=== PATIENT | female | born 1940 | race Caucasian/White ===

== ENCOUNTER 2018-09-26 21:23 | Inpatient (IN) | payer OTHER ==
--- NOTE | 2018-09-26 21:40 | EDPHY ---
H & P Stated Complaint: abd pain and nausea since 3 p.m. severe RLQ pain - Personal History Current Tetanus/Diphtheria Vaccine: No Current Tetanus Diphtheria and Acellular Pertussis (TDAP): No - Medical/Surgical History Hx Asthma: No Hx Chronic Respiratory Disease: No Hx Diabetes: No Hx Cardiac Disease: No Hx Renal Disease: No Hx Cirrhosis: No Hx Alcoholism: No Hx HIV/AIDS: No Hx Splenectomy or Spleen Trauma: No Other PMH: macular degeneration, hist, - Social History Smoking Status: Never smoked Time Seen by Provider: 09/26/18 21:33 HPI/ROS: CHIEF COMPLAINT: Right lower abdominal pain HISTORY OF PRESENT ILLNESS: 77-year-old female arrives via private vehicle complaining of right lower quadrant abdominal pain since approximately 2:00 p.m. Today. Last oral intake 7:00 p.m. Today. Pain has been progressive since 2:00 p.m.. No radiation. No recent illness. No antecedent symptoms. Patient has had 4 bowel movements today. Denies: Fever, chills, urinary abnormality, melena, hematochezia, abdominal trauma, recent illness. PRIMARY CARE PROVIDER: Dr. Hina Hopkins REVIEW OF SYSTEMS: 10 systems reviewed and negative with the exception of the elements mentioned in the history of present illness PAST MEDICAL & SURGICAL HISTORY: Hysterectomy. Otherwise no history of abdominal surgeries. SOCIAL HISTORY: Nonsmoker PHYSICAL EXAM (Prior to examination, patient consented to physical exam, hands were washed and my usual and customary physical exam procedures followed) 1) GENERAL: Well-developed, well-nourished, alert and oriented. Appears uncomfortable, crying 2) HEAD: Normocephalic, atraumatic 3) HEENT: Pupils equal, round, reactive to light bilaterally. Sclera anicteric. Nasopharynx, oropharynx, clear, no lesions. Dry mucous membranes. 4) NECK: Full range of motion, no meningeal signs. 5) LUNGS: Clear auscultation bilaterally, no wheezes, no rhonchi, no retractions. 6) HEART: Regular rate and rhythm, no murmur, no heave, no gallop. 7) ABDOMEN: guarding abdomen, tender to palpation right lower quadrant, negative Porter's, negative Rovsing's, negative peritoneal sign, 8) MUSCULOSKELETAL: Moving all extremities, no focal areas of tenderness, no obvious trauma. No peripheral edema or discoloration. 9) BACK: No CVA tenderness, no midline vertebral tenderness, no fluctuance, no step-off, no obvious trauma, no visual or palpable abnormality. 10) SKIN: No rash, no petechiae. 11) Psychiatric: Patient is oriented X 3, there is no agitation. DIFFERENTIAL DIAGNOSIS: My differential diagnosis includes, but is not limited to, acute appendicitis, acute cholecystitis, bowel obstruction, acute pancreatitis, ovarian torsion, gastritis and urinary tract infection. The patient understands that this diagnosis is provisional and can never be 100% accurate. This is a partial list of diagnoses considered. These considerations are based on history, physical exam, past history and reassessment. (Alberto Castro) Constitutional: Initial Vital Signs Temperature (C) 36.6 C 09/26/18 21:27 Heart Rate 76 09/26/18 21:27 Respiratory Rate 18 09/26/18 21:27 Blood Pressure 169/81 H 09/26/18 21:27 O2 Sat (%) 97 09/26/18 21:27 O2 Delivery Mode Room Air Allergies/Adverse Reactions: No Known Allergies Allergy (Verified 09/27/18 08:06) Home Medications: Medication Instructions Recorded Levothyroxine [Synthroid 75 mcg 75 mcg PO DAILY06 09/26/18 (*)] C/E/Zn/Cu/OM3/DHA/EPA/LUT/ZEAX 2 each PO DAILY 09/27/18 [Preservision Areds 2 Softgel] Cholecalciferol Vit D3 [Vitamin D3 1,000 units PO DAILY 09/27/18 (*)] Doxepin HCl [Silenor] 3 mg PO HS 09/27/18 Glucosamine Sulfate [Glucosamine 500 mg PO DAILY 09/27/18 Sulfate 500 MG (*)] Valacyclovir HCl [Valtrex] 1,000 mg PO Q2D 09/27/18 Zolpidem Tartrate [Ambien Cr] 6.25 mg PO DAILY@02 PRN 09/27/18 Zolpidem Tartrate [Ambien Cr] 6.25 mg PO HS 09/27/18 Medical Decision Making - Diagnostics Imaging Results: Imaging Impressions Abdomen/Pelvis CT 09/26/18 21:57 Impression: Constipation. Otherwise, no acute process identified. Findings and recommendations discussed with Justice Castro PA-C, at 10:30 p.m., on September 26, 2018. Final report concurs with initial preliminary interpretation. Attention: This examination does not use radiographic contrast, and as such, provides only a limited evaluation of the abdomen, pelvis, and retroperitoneum. If there is further clinical suspicion for pathological conditions, a complete CT evaluation of the abdomen and pelvis utilizing intravenous, oral, and rectal contrast should be considered. Images reviewed myself (Alberto Castro) ED Course/Re-evaluation: 9:39 p.m.: Patient is focally tender to palpation right lower quadrant. Last oral intake at 7:00 p.m.. Will obtain i-STAT creatinine , perform CT imaging. Indications risks benefits of CT imaging discussed with patient and she provides verbal consent. Care of patient under supervision of secondary supervising physician Dr Stephen García with whom I discussed case and whom evaluated patient. 10:44 p.m.: Discussed imaging results with staff radiologist showing extensive stool, normal appearing appendix. Images reviewed myself 10:49 p.m.: The patient was re-evaluated by myself. I discussed the imaging results. Rectal examination performed at this time with curtis Cortes at bedside reveals no stool in the rectal vault. Will administer soap jeff enema 11:36 p.m.: Re-evaluation after soapsuds enema and fentanyl. She remains in quite a bit of abdominal discomfort. She is currently sitting on the commode but notes no passage of stool is concerned about being discharged home. Will plan on admission to hospital for observation, pain control 1149 pm: Consultation with hospitalist Dr Clancy who will admit patient for abdominal pain, constipation. (Alberto Castro) Other Provider: PHYSICIAN DOCUMENTATION: The patient was evaluated and managed by the Physician Outside Rigger and myself. I have reviewed the chart and agree with the findings and plan of care as documented. In addition, I examined the patient myself. History confirmed as abdominal pain since this afternoon 2:00 p.m., did have 3 or 4 bowel movements today. Physical findings as follows: Right lower quadrant abdominal tenderness without rebound or guarding. CT abdomen and pelvis per the radiologist shows normal appendix and constipation. Plan for enema with discharge if symptoms resolve, admission for observation or surgical consultation if still symptomatic. Signed to Felipe at 2300. I am the secondary supervising physician. (Stephen García) - Data Points Laboratory Results: Laboratory Results 09/26/18 21:45 09/26/18 21:45 09/26/18 09/26/18 09/26/18 21:50 21:45 21:45 WBC 10.32 10^3/uL H 10^3/uL (3.80-9.50) RBC 4.13 10^6/uL L 10^6/uL (4.18-5.33) Hgb 13.2 g/dL g/dL (12.6-16.3) POC Hgb 13.6 gm/dL gm/dL (12.6-16.3) Hct 39.1 % % (38.0-47.0) POC Hct 40 % % (38-47) MCV 94.7 fL fL (81.5-99.8) MCH 32.0 pg pg (27.9-34.1) MCHC 33.8 g/dL g/dL (32.4-36.7) RDW 12.9 % % (11.5-15.2) Plt Count 254 10^3/uL 10^3/uL (150-400) MPV 11.3 fL fL (8.7-11.7) Neut % (Auto) 75.8 % H % (39.3-74.2) Lymph % (Auto) 18.4 % % (15.0-45.0) [place] % (Auto) 4.7 % % (4.5-13.0) Eos % (Auto) 0.3 % L % (0.6-7.6) Baso % (Auto) 0.4 % % (0.3-1.7) Nucleat RBC Rel Count 0.0 % % (0.0-0.2) Absolute Neuts (auto) 7.83 10^3/uL H 10^3/uL (1.70-6.50) Absolute Lymphs (auto) 1.90 10^3/uL 10^3/uL (1.00-3.00) Absolute Monos (auto) 0.48 10^3/uL 10^3/uL (0.30-0.80) Absolute Eos (auto) 0.03 10^3/uL 10^3/uL (0.03-0.40) Absolute Basos (auto) 0.04 10^3/uL 10^3/uL (0.02-0.10) Absolute Nucleated RBC 0.00 10^3/uL 10^3/uL (0-0.01) Immature Gran % 0.4 % % (0.0-1.1) Immature Gran # 0.04 10^3/uL 10^3/uL (0.00-0.10) POC Sodium 139 mEq/L mEq/L (135-145) Sodium 133 mEq/L L mEq/L (135-145) POC Potassium 4.0 mEq/L mEq/L (3.3-5.0) Potassium 4.2 mEq/L mEq/L (3.5-5.2) POC Chloride 106 mEq/L mEq/L (97-110) Chloride 106 mEq/L mEq/L (97-110) Carbon Dioxide 19 mEq/l L mEq/l (22-31) POC Total CO2 19 mEq/L L mEq/L (22-31) Anion Gap 8 mEq/L mEq/L (6-14) POC BUN 24 mg/dL H mg/dL (7-23) BUN 24 mg/dL H mg/dL (7-23) Creatinine 1.1 mg/dL H mg/dL (0.6-1.0) POC Creatinine 1.2 mg/dL H mg/dL (0.6-1.0) Estimated GFR 48 Glucose 184 mg/dL H mg/dL (70-100) POC Glucose 188 mg/dL H mg/dL (70-100) Calcium 9.8 mg/dL mg/dL (8.5-10.4) Total Bilirubin 0.4 mg/dL mg/dL (0.1-1.4) Conjugated Bilirubin 0.3 mg/dL mg/dL (0.0-0.5) Unconjugated Bilirubin 0.1 mg/dL mg/dL (0.0-1.1) AST 24 IU/L IU/L (14-46) ALT 32 IU/L IU/L (9-52) Alkaline Phosphatase 59 IU/L IU/L (38-126) Total Protein 6.3 g/dL g/dL (6.3-8.2) Albumin 3.9 g/dL g/dL (3.5-5.0) Lipase 96 IU/L IU/L (23-300) Medications Given: Bisacodyl (Dulcolax Rectal) 10 mg NH DAILY PRN; Protocol PRN Reason: Constipation Stop: 03/26/19 01:00 Last Admin: 09/27/18 02:44 Dose: 10 mg Heparin Sodium (Porcine) (Heparin Sc Injection) 5,000 unit SC Q8 REJI Stop: 03/26/19 05:59 Last Admin: 09/27/18 06:18 Dose: 5,000 unit Lorazepam (Ativan Injection) 0.5 - 1 mg IVP Q8HRS PRN PRN Reason: Spasms Stop: 03/26/19 00:57 Last Admin: 09/27/18 02:05 Dose: 0.5 mg Ondansetron HCl (Zofran) 4 mg IVP Q4HRS PRN PRN Reason: Nausea/Vomiting, Can't Take PO Stop: 03/26/19 00:52 Last Admin: 09/27/18 08:06 Dose: 4 mg Promethazine HCl (Phenergan) 6.25 mg IVP Q6HRS PRN PRN Reason: Nausea/Vomiting, Can't Take PO Stop: 03/26/19 03:57 Last Admin: 09/27/18 06:33 Dose: 6.25 mg Senna/Docusate Sodium (Senokot-S) 1 - 2 tab PO BID REJI PRN Reason: Protocol Stop: 03/26/19 08:59 Last Admin: 09/27/18 08:06 Dose: 1 tab Discontinued Medications Fentanyl (Sublimaze) 50 mcg IVP EDNOW ONE Stop: 09/26/18 22:53 Last Admin: 09/26/18 23:22 Dose: 50 mcg Sodium Chloride (Ns) 1,000 mls @ 0 mls/hr IV ONCE ONE PRN Reason: Wide Open Stop: 09/26/18 21:58 Last Admin: 09/26/18 22:01 Dose: 1,000 mls Ondansetron HCl (Zofran) 4 mg IVP EDNOW ONE Stop: 09/26/18 23:26 Last Admin: 09/26/18 23:25 Dose: 4 mg Point of Care Test Results: Chemistry 09/26/18 21:50 POC Sodium 139 mEq/L mEq/L (135-145) POC Potassium 4.0 mEq/L mEq/L (3.3-5.0) POC Chloride 106 mEq/L mEq/L (97-110) POC Total CO2 19 mEq/L L mEq/L (22-31) POC BUN 24 mg/dL H mg/dL (7-23) POC Creatinine 1.2 mg/dL H mg/dL (0.6-1.0) POC Glucose 188 mg/dL H mg/dL (70-100) ISTAT H&H 09/26/18 21:50 POC Hgb 13.6 gm/dL gm/dL (12.6-16.3) POC Hct 40 % % (38-47) Departure - Departure Disposition: [facility] Inpatient Acute Clinical Impression: Constipation Qualifiers: Constipation type: unspecified constipation type Qualified Code(s): K59.00 - Constipation, unspecified Abdominal pain Qualifiers: Abdominal location: right lower quadrant Qualified Code(s): R10.31 - Right lower quadrant pain Condition: Fair
[2018-09-26] MEDS ORDERED: NS 1,000 ML IV ONE (21:57)
[2018-09-26 22:29] LABS: PLATELET COUNT 254 10^3/uL (150-400)
[2018-09-26] MEDS ORDERED: fentaNYL 100 MCG/2 ML INJ IVP ONE (22:52)
[2018-09-26] MEDS ORDERED: ONDANSETRON 4 MG/2 ML VIAL ONE (23:19)
[2018-09-26] MEDS ORDERED: ONDANSETRON 4 MG/2 ML VIAL IVP ONE (23:25)
[2018-09-27] MEDS ORDERED: ACETAMINOPHEN 325 MG TAB PO PRN (00:53)
[2018-09-27] MEDS ORDERED: ONDANSETRON DISINTEGRATING 4 MG TAB PO PRN (00:53)
[2018-09-27] MEDS ORDERED: ACETAMINOPHEN 650 MG SUPP PR PRN (00:58)
[2018-09-27] MEDS ORDERED: LACTULOSE 20 GM/30 ML UDCUP PO PRN (01:01)
[2018-09-27] MEDS ORDERED: BISACODYL 10 MG SUPP PR PRN (01:01)
[2018-09-27] MEDS ORDERED: POLYETHYLENE GLYCOL 3350 17 GM PKT PO PRN (01:01)
[2018-09-27] MEDS ORDERED: MAGNESIUM HYDROXIDE 30 ML UDCUP PO PRN (01:01)
[2018-09-27] MEDS: ONDANSETRON 4 MG/2 ML VIAL IVP PRN ×3 (01:22→12:08)
[2018-09-27] MEDS: LORazepam 2 MG/ML INJ IVP PRN ×3 (01:22→11:03)
--- NOTE | 2018-09-27 04:11 | PDGENHP ---
History and Physical - Chief Complaint Abdominal pain, nausea vomiting - History of Present Illness Source-this is a a pleasant 77-year-old female with past medical history significant for hypothyroidism insomnia macular degeneration who presents emergency department today with complaints progressively worsening right mid and lower abdominal pain. Symptoms started approximately 2:00 p.m.. Patient notes abdominal distension. She denies any fevers and has been starting to feel chilly since arrival to the floor. She reports nausea vomiting 5 times before arrival to the ED. No hematemesis. Patient without any melena or hematochezia. She reports 4 small bowel movements earlier in the day. No recent sick contacts or travel. Pain does not radiate. History Information - Allergies/Home Medication List Allergies/Adverse Reactions: No Known Allergies Allergy (Unverified 09/26/18 21:30) Home Medications: Beta-Carotene(A) W-C & E/Min [Ocuvite] 1 each PO 09/26/18 [Last Taken Unknown] Glucosamine Sulfate Dipot Chlr [Glucosamine] 1,000 mg PO 09/26/18 [Last Taken Unknown] Levothyroxine [Synthroid 75 mcg (*)] 75 mcg PO DAILY06 09/26/18 [Last Taken Unknown] Zolpidem Tartrate [Ambien 5MG (*)] 5 mg PO HS 09/26/18 [Last Taken Unknown] I have personally reviewed and updated: family history, medical history, social history, surgical history - Past Medical History Additional medical history: Hypothyroidism, insomnia, macular degeneration - Surgical History Additional surgical history: Hysterectomy - Family History Additional family history: Negative for IBS or GI disorders. Patient reports both parents at young age but do not state from what. - Social History Smoking Status: Never smoked Alcohol Use: None Drug Use: Other (With glass a wine daily. ) Review of Systems Review of Systems: ROS: 10pt was reviewed & negative except for what was stated in HPI & below Physical Exam Physical Exam: Selected Entries 09/26/18 21:27 Blood Pressure Automatic Method Heart Rate 76 Respiratory 18 Rate O2 Sat (%) 97 Temperature (C) 36.6 C Blood Pressure 169/81 H Mean Arterial 110 H Pressure (MAP) O2 Delivery Room Air Mode Temperature Oral Source Temp Pulse Resp BP Pulse Ox 36.6 C 71 16 141/99 H 94 09/27/18 03:15 09/27/18 03:15 09/27/18 03:15 09/27/18 03:15 09/27/18 03:15 Constitutional: appears nourished, chronically ill appearing, uncomfortable, other (Patient in mild distress secondary to complaints of pain in the right lower quadrant.) Eyes: PERRL (Decreased reactivity light bilaterally but symmetric.), anicteric sclera, EOMI, No scleral injection Ears, Nose, Mouth, Throat: dry mucous membranes, other (No nasal discharge.), No poor dentition Cardiovascular: regular rate and rhythym, no murmur, rub, or gallop, pulses symmetric bilaterally, No edema Peripheral Pulses: 1+: dorsalis-pedis (R), dorsalis-pedis (L) Respiratory: no respiratory distress, no rales or rhonchi, clear to auscultation , reduced air movement (Decreased inspiratory effort.), No expiratory wheeze, No inspiratory crackles Gastrointestinal: normoactive bowel sounds, no palpable masses, tenderness ( Right mid and lower quadrant.), distension (Minimally distended but soft.), No head's sign, No hepatosplenomegally Genitourinary: no bladder tenderness, No stubbs in urethra Skin: warm, normal color, no rashes or abrasions Musculoskeletal: no muscle tenderness, no joint effusions, generalized weakness , No pain with ROM Neurologic: AAOx3, sensation intact bilaterally, weakness, other, No facial droop Psychiatric: interacting appropriately, not encephalopathic, thought process linear, anxious, other (Patient is a bit restless. She is not able to really get comfortable. Complaints of right lower quadrant abdominal pain and nausea.) , No agitated, No poor insight, No poor judgement, No poor memory Lab Data & Imaging Review 09/26/18 21:45 09/26/18 21:45 WBC 10.32 10^3/uL (3.80-9.50) H 09/26/18 21:45 RBC 4.13 10^6/uL (4.18-5.33) L 09/26/18 21:45 Hgb 13.2 g/dL (12.6-16.3) 09/26/18 21:45 POC Hgb 13.6 gm/dL (12.6-16.3) 09/26/18 21:50 Hct 39.1 % (38.0-47.0) 09/26/18 21:45 POC Hct 40 % (38-47) 09/26/18 21:50 MCV 94.7 fL (81.5-99.8) 09/26/18 21:45 MCH 32.0 pg (27.9-34.1) 09/26/18 21:45 MCHC 33.8 g/dL (32.4-36.7) 09/26/18 21:45 RDW 12.9 % (11.5-15.2) 09/26/18 21:45 Plt Count 254 10^3/uL (150-400) 09/26/18 21:45 MPV 11.3 fL (8.7-11.7) 09/26/18 21:45 Neut % (Auto) 75.8 % (39.3-74.2) H 09/26/18 21:45 Lymph % (Auto) 18.4 % (15.0-45.0) 09/26/18 21:45 [place] % (Auto) 4.7 % (4.5-13.0) 09/26/18 21:45 Eos % (Auto) 0.3 % (0.6-7.6) L 09/26/18 21:45 Baso % (Auto) 0.4 % (0.3-1.7) 09/26/18 21:45 Nucleat RBC Rel Count 0.0 % (0.0-0.2) 09/26/18 21:45 Absolute Neuts (auto) 7.83 10^3/uL (1.70-6.50) H 09/26/18 21:45 Absolute Lymphs (auto) 1.90 10^3/uL (1.00-3.00) 09/26/18 21:45 Absolute Monos (auto) 0.48 10^3/uL (0.30-0.80) 09/26/18 21:45 Absolute Eos (auto) 0.03 10^3/uL (0.03-0.40) 09/26/18 21:45 Absolute Basos (auto) 0.04 10^3/uL (0.02-0.10) 09/26/18 21:45 Absolute Nucleated RBC 0.00 10^3/uL (0-0.01) 09/26/18 21:45 Immature Gran % 0.4 % (0.0-1.1) 09/26/18 21:45 Immature Gran # 0.04 10^3/uL (0.00-0.10) 09/26/18 21:45 POC Sodium 139 mEq/L (135-145) 09/26/18 21:50 Sodium 133 mEq/L (135-145) L 09/26/18 21:45 POC Potassium 4.0 mEq/L (3.3-5.0) 09/26/18 21:50 Potassium 4.2 mEq/L (3.5-5.2) 09/26/18 21:45 POC Chloride 106 mEq/L (97-110) 09/26/18 21:50 Chloride 106 mEq/L (97-110) 09/26/18 21:45 Carbon Dioxide 19 mEq/l (22-31) L 09/26/18 21:45 POC Total CO2 19 mEq/L (22-31) L 09/26/18 21:50 Anion Gap 8 mEq/L (6-14) 09/26/18 21:45 POC BUN 24 mg/dL (7-23) H 09/26/18 21:50 BUN 24 mg/dL (7-23) H 09/26/18 21:45 Creatinine 1.1 mg/dL (0.6-1.0) H 09/26/18 21:45 POC Creatinine 1.2 mg/dL (0.6-1.0) H 09/26/18 21:50 Estimated GFR 48 09/26/18 21:45 Glucose 184 mg/dL (70-100) H 09/26/18 21:45 POC Glucose 188 mg/dL (70-100) H 09/26/18 21:50 Calcium 9.8 mg/dL (8.5-10.4) 09/26/18 21:45 Total Bilirubin 0.4 mg/dL (0.1-1.4) 09/26/18 21:45 Conjugated Bilirubin 0.3 mg/dL (0.0-0.5) 09/26/18 21:45 Unconjugated Bilirubin 0.1 mg/dL (0.0-1.1) 09/26/18 21:45 AST 24 IU/L (14-46) 04/16/19 21:45 ALT 32 IU/L (9-52) 09/26/18 21:45 Alkaline Phosphatase 59 IU/L (38-126) 09/26/18 21:45 Total Protein 6.3 g/dL (6.3-8.2) 09/26/18 21:45 Albumin 3.9 g/dL (3.5-5.0) 09/26/18 21:45 Lipase 96 IU/L (23-300) 09/26/18 21:45 Imaging Review: CT Scan of the Abdomen and Pelvis (Without IV Contrast) Clinical Indications: Right lower quadrant abdominal pain. Elevated creatinine, therefore, no IV contrast used. Technique: No intravenous contrast was given. Multidetector helical CT imaging is performed from the diaphragm to the symphysis pubis. Dose reduction techniques were utilized. Comparison: None. Findings: There is a moderate amount of stool throughout the ascending colon. The bowel loops otherwise do not appear to be thickened. Small bowels are normal. There is speckled increased density within stool content in the lower ileal loops, nonspecific. No hydronephrosis. Noncontrast evaluation of the solid and visceral organs are otherwise normal. There is no right lower quadrant inflammatory process. There is diffuse colonic diverticulosis. Impression: Constipation. Otherwise, no acute process identified. Findings and recommendations discussed with Justice Castro PA-C, at 10:30 p.m., on September 26, 2018. Final report concurs with initial preliminary interpretation. Attention: This examination does not use radiographic contrast, and as such, provides only a limited evaluation of the abdomen, pelvis, and retroperitoneum. If there is further clinical suspicion for pathological conditions, a complete CT evaluation of the abdomen and pelvis utilizing intravenous, oral, and rectal contrast should be considered. Dictated By: Luna Soto MD Assessment & Plan Assessment: this is a a pleasant 77-year-old female with past medical history significant for hypothyroidism insomnia macular degeneration who presents emergency department today with complaints progressively worsening right mid and lower abdominal pain. #Abdominal pain (Acute)-RLQ abdominal pain. CT and negative for any evidence of acute process. This is noncontrast CT secondary to patient's creatinine. IV fluid hydrate overnight. Repeat a BMP in the morning. If she is still significantly tender need to further discuss with the patient risks benefits of repeating a CT abdomen pelvis with contrast (IV and rectal). Alternative option which would be less sensitive would be to consider an ultra sound of the abdomen however anticipate this would be significantly limited due to large amount of stool in the large intestine. Differential diagnosis including significant constipation, acute appendicitis, diverticulosis Patient is a significant amount of stool present in the colon. Despite attempts to manual disimpaction and enema patient has not yet had a bowel movement. Continue with IV hydration, bowel regimen. Discussed findings and CT with the patient. She is complaining of increasing pain in the right lower quadrant. I did review with her that narcotics May cause additional transit delay in her colon worsening her current status. She was agreeable to plan to try alternative medications for pain control. Ativan has been ordered p.r.n.. And bowel regimen as noted above. #Constipation (Acute) - patient with a history of patient or bowel symptoms. She had is being treated for hypothyroidism so will plan to check TSH in T4. She is not currently on any additional medications or supplements that with slow transit through the large intestine. # nausea vomiting - may need to consider #Hyponatremia - likely some component of dehydration on hypovolemia. IV fluid hydration. Monitor BMP. #CKD stage III. Patient's creatinine appears to be baseline approximately 1.1. This is not significantly worsened from her baseline. #Hypothyroidism - check TFTs as noted above. #Macular degeneration - patient received a ocular injection earlier in the day. # hyperglycemia - this nonfasting lab. Patient without any previous history diabetes. May be stress response in setting of nausea vomiting. Whole head repeat with a.m. BMP. FEN - IVF supplementation overnight. Advance diet as tolerated however patient continues to have some nausea vomiting. May need to consider PPX - SCDs. heparin COR - FULL Dispo - Patient admitted observation status pending response to treatment plan as above.
[2018-09-27 05:10] LABS: PLATELET COUNT 208 10^3/uL (150-400)
[2018-09-27] MEDS: HEPARIN 5,000 UNIT/0.5 ML INJ SC SCH ×3 (06:18→20:12)
[2018-09-27] MEDS: PROMETHAZINE HCL 25 MG/ML INJ IVP PRN ×2 (06:33→14:22)
[2018-09-27] MEDS: SENNOSIDES/DOCUSATE SODIUM TAB PO SCH ×2 (08:06→20:11)
[2018-09-27] MEDS: NS 1,000 ML IV SCH ×2 (09:23→18:16)
--- NOTE | 2018-09-27 11:51 | HOSPPROG ---
Hospitalist Progress Note Assessment/Plan: 77-year-old female with h/o hypothyroidism admitted with abdominal pain, N/V #RLQ abdominal pain - Non-contrast CT (pers reviewed/interp) shows stool throughout colon, no e/o obstruction. She denies h/o constipation. -check CT with PO/IV contrast to better evaluate appendix -consider surgical consult though she does not currently have an acute abdomen -bowel regimen seems appropriate given CT findings, she had a BM today which was soft # nausea vomiting - has not recurred overnight, no e/o obstruction on CT -prn anti-emetics #Hyponatremia - resolved with IVF's #CKD stage III - Cr near baseline of 1.1 #Hypothyroidism - TSH normal #Macular degeneration - patient received a ocular injection yest PPX - REJI COR - FULL Dispo - Change to inpt as pt will need additional midnight for management of abdominal pain and additional workup Subjective: PT continues to have RLQ discomfort and nausea. No vomiting overnight, but vomited twice yesterday. No fevers/chills. She denies h/o constipation. Says she has BM daily which is soft without straining. She had a BM here since arrival which was also soft, did not improve her symptoms. Objective: Vital Signs Temp Pulse Resp BP Pulse Ox 36.4 C 72 16 137/91 H 94 09/27/18 07:38 09/27/18 07:38 09/27/18 07:38 09/27/18 07:38 09/27/18 07:38 Laboratory Results 09/27/18 04:16 09/27/18 04:16 09/26/18 09/27/18 09/28/18 05:59 05:59 05:59 Intake Total 1000 Output Total 5 Balance 995 - Physical Exam Constitutional: no apparent distress Eyes: PERRL Ears, Nose, Mouth, Throat: moist mucous membranes Cardiovascular: regular rate and rhythym Respiratory: no respiratory distress, clear to auscultation Gastrointestinal: normoactive bowel sounds, soft, non-tender abdomen Skin: warm Musculoskeletal: full muscle strength Neurologic: AAOx3 Psychiatric: interacting appropriately ICD10 Worksheet Patient Problems: Problems Problem Status Onset Abdominal pain Acute Constipation Acute
[2018-09-27] MEDS ORDERED: IOPAMIDOL (ISOVUE-300) 100 ML BTL ONE (13:26)
[2018-09-27] MEDS ORDERED: KETOROLAC 15 MG/1 ML SDV IVP ONE (14:35)
[2018-09-27] MEDS: TAMSULOSIN HCL 0.4 MG CAP PO SCH (15:27)
--- NOTE | 2018-09-27 15:52 | ASMTCMCOM ---
CM Note CM Note Notes: Spoke w/RN, pt admitted to hospital for R quadrant pain. Imaging revealed kidney stone, will haver intervention tomorrow if she doesn't pass it tonight. Pt otherwise independent, anticipate will dc home with support of her LP when medically stable. CM available should her needs change. DC Plan: Independent Date Signed: 09/27/2018 03:52 PM Electronically Signed By:Traci Pool RN
--- NOTE | 2018-09-27 18:44 | SOAPPROG ---
SOAP Progress Note Assessment/Plan: Assessment: Ureterolithiasis Acute rt and seems to have passed stone by symptoms. Ascites Acute most likely related to the stone and nephric edema Plan: as ordered, if pt does not pass stone remove 09/27/18 18:42 Subjective: rt distal stone and pain in normal associated areas. Objective: Vital Signs Temp Pulse Resp BP Pulse Ox 36.6 C 82 16 138/73 H 95 09/27/18 15:34 09/27/18 15:34 09/27/18 15:34 09/27/18 15:34 09/27/18 15:34 Physical Exam - Physical Exam General Appearance: alert Neck: supple Respiratory: No respiratory distress Cardiac/Chest: regular rate, rhythm Abdomen: non-tender Skin: warm/dry Extremities: No calf tenderness Neuro/Psych: alert, oriented x 3 ICD10 Worksheet Patient Problems: Problems Problem Status Onset Abdominal pain Acute Constipation Acute Ureterolithiasis Acute - ICD10 Problem Qualifiers (1) Ureterolithiasis
[2018-09-28] MEDS: NS 1,000 ML IV SCH (04:58)
[2018-09-28] MEDS: HEPARIN 5,000 UNIT/0.5 ML INJ SC SCH (05:11)
[2018-09-28 05:23] LABS: PLATELET COUNT 175 10^3/uL (150-400)
--- NOTE | 2018-09-28 07:37 | SOAPPROG ---
SOAP Progress Note Assessment/Plan: Assessment: Ureterolithiasis Acute rt and seems to have passed stone by symptoms. Ascites Acute most likely related to the stone and nephric edema Plan: no pain and sono noted ureteral jets, no hydro so pt can be DCed 09/28/18 11:20 Subjective: no pain Objective: Vital Signs Temp Pulse Resp BP Pulse Ox 36.7 C 64 16 109/62 93 09/28/18 04:00 09/28/18 04:00 09/28/18 04:00 09/28/18 04:00 09/28/18 04:00 Laboratory Results 09/28/18 04:15 09/28/18 04:15 09/27/18 09/28/18 09/29/18 05:59 05:59 05:59 Intake Total 200 Output Total 400 Balance -200 Physical Exam - Physical Exam General Appearance: alert Respiratory: No respiratory distress Abdomen: soft Back: No CVA tenderness Extremities: No calf tenderness Neuro/Psych: alert, oriented x 3 ICD10 Worksheet Patient Problems: Problems Problem Status Onset Abdominal pain Acute Constipation Acute Ureterolithiasis Acute - ICD10 Problem Qualifiers (1) Ureterolithiasis
[2018-09-28] MEDS: SENNOSIDES/DOCUSATE SODIUM TAB PO SCH (10:06)
[2018-09-28] MEDS: TAMSULOSIN HCL 0.4 MG CAP PO SCH (11:21)
[2018-09-28 12:11] VITALS: BP 111/64
--- NOTE | 2018-09-28 12:39 | PDMN ---
Medical Necessity Medical necessity: Change to IP, as of 09/27/18, per MD & MCG M-320; los >2 mn for ongoing management of kidney stone with 7/10 RLQ abdominal pain; requiring Urology consult w/possible intervention & pain management; hx CKD
--- NOTE | 2018-10-03 01:25 | GDS ---
[f rep st] DISCHARGE SUMMARY DISCHARGE DIAGNOSES: 1. Nephrolithiasis with presumed passage of stone. 2. Hyponatremia, resolved. 3. Chronic kidney disease, stage 3. 4. Hypothyroidism. SHOVEL OPERATOR: Jose Vega MD, urology. IMAGING STUDIES: 1. Abdomen and pelvis CT, September 26, without contrast showed findings consistent with constipation. No other explanation for her right lower quadrant pain. 2. Abdomen and pelvis CT, September 27, 2018, with contrast revealed a 3 mm obstructing right ureteroves ical junction stone with associated right-sided hydronephrosis. 3. Abdomen and pelvis ultrasound, September 28, 2018, showed resolution of hydronephrosis with normal vi sualization of bilateral ureteral jets, and the prior visualized distal right ureteral calculus looks to have passed with resolution of the hydronephrosis. HISTORY OF DETAILS: Please see history and physical dated September 27, 2018. In brief, the patient is a 77-year-old female with history of hypothyroidism and macular degeneration, presents to the emergen cy department with right lower quadrant pain. Initial CT without contrast was unrevealing. Attempts to manually disimpact her for presumed constipation did not resolve her pain. She was admitted to [facility] for further management. HOSPITAL COURSE: Patient was admitted to the med/surg unit. She had persistent focal right lower qu adrant pain the following morning, and CT with contrast was obtained. This showed a 3 mm obstructing right ureteral stone with associated hydronephrosis. Her urinalysis on arrival was completely negat alise. In addition, she was afebrile and had just a minimally elevated white blood cell count of 10.5. Urology consult was obtained as consideration was given to urologic intervention for definitive man agement of her obstructing stone; however, after an episode of vomiting, she seems to have passed the stone. Her symptoms have completely resolved. Repeat ultrasound showed resolution of the hydroneph rosis. There has been no further evidence of infection. DISPOSITION: Patient is discharged home in stable condition. FOLLOWUP: With primary care as needed. DISCHARGE MEDICATIONS: Please see [facility] for completed medication list. There are no new medicati ons on discharge /[id number]/MODL
== END 2018-09-28 13:34 | disposition home or self-care (01) | DRG 694 ==
LOC: F3E 09-27 00:10 → OBSVTOIN 09-27 11:53
PROVIDERS: ADMIT Family Medicine; ATTEND Hospitalist
DX: N20.1 Calculus of ureter (principal); E03.9 Hypothyroidism, unspecified; N18.3 Chronic kidney disease, stage 3 (moderate); H35.30 Unspecified macular degeneration; R73.9 Hyperglycemia, unspecified
CPT/HCPCS: 82435-PO; 82565-PO; 82947-PO; 84132-PO; 84295-PO; 84520-PO; 85014-ER; 96374; J1644; J1885; J2060; J2405; J2550; J3010; Q9967

== ENCOUNTER 2018-09-29 18:11 | Emergency (ER) | payer OTHER ==
--- NOTE | 2018-09-29 18:24 | EDPHY ---
H & P Stated Complaint: nausea and fever today, admitted for kidney stone this week Time Seen by Provider: 09/29/18 18:24 - Medical/Surgical History Hx Asthma: No Hx Chronic Respiratory Disease: No Hx Diabetes: No Hx Cardiac Disease: No Hx Renal Disease: No Hx Cirrhosis: No Hx Alcoholism: No Hx HIV/AIDS: No Hx Splenectomy or Spleen Trauma: No Other PMH: macular degeneration, hist, kidney stone - Social History Smoking Status: Never smoked Constitutional: Initial Vital Signs Temperature (C) 36.8 C 09/29/18 18:15 Heart Rate 70 09/29/18 18:15 Respiratory Rate 18 09/29/18 18:15 Blood Pressure 179/92 H 09/29/18 18:15 O2 Sat (%) 94 09/29/18 18:15 O2 Delivery Mode Room Air Allergies/Adverse Reactions: No Known Allergies Allergy (Verified 09/29/18 18:15) Home Medications: Medication Instructions Recorded Levothyroxine [Synthroid 75 mcg 75 mcg PO DAILY06 09/26/18 (*)] C/E/Zn/Cu/OM3/DHA/EPA/LUT/ZEAX 2 each PO DAILY 09/27/18 [Preservision Areds 2 Softgel] Cholecalciferol Vit D3 [Vitamin D3 1,000 units PO DAILY 09/27/18 (*)] Doxepin HCl [Silenor] 3 mg PO HS 09/27/18 Glucosamine Sulfate [Glucosamine 500 mg PO DAILY 09/27/18 Sulfate 500 MG (*)] Valacyclovir HCl [Valtrex] 1,000 mg PO Q2D 09/27/18 Zolpidem Tartrate [Ambien Cr] 6.25 mg PO DAILY@02 PRN 09/27/18 Zolpidem Tartrate [Ambien Cr] 6.25 mg PO HS 09/27/18 Cephalexin [Keflex (RX)] 500 mg PO TID #30 cap 09/29/18 Medical Decision Making ED Course/Re-evaluation: CHIEF COMPLAINT: Fever after kidney stone HISTORY OF PRESENT ILLNESS: The patient is a 77 y/o female with a history of macular degeneration, hysterectomy, and kidney stones complaining of fever and nausea after being diagnosed with a kidney stone. The patient developed right lower quadrant pain and presented to the emergency department. She was diagnosed with constipation and was admitted after vomiting. During that admission she was diagnosed with a kidney stone. She did have increasing creatine levels throughout that admission. During that admission the pain and nausea dramatically improved, so it was suspected that she passed the stone so she was discharged home. After returning home she developed intermittent abdominal pain, nausea and a temperature of 99, which is high for her as her temp is normal 97. Due to these symptoms in conjunction with her recent admission, she decided to present to the emergency department. No headache, body aches, lightheadedness, chest pain, heart palpitations, shortness of breath, cough, numbness, paresthesias. REVIEW OF SYSTEMS: A comprehensive 10 system review of systems is otherwise negative aside from elements mentioned in the history of present illness and medical decision making. PHYSICAL EXAM: HR, BP, O2 Sat, RR. Temp noted General Appearance: Alert, well hydrated, appropriate, and non-toxic appearing. Head: Atraumatic without scalp tenderness or obvious injury Eyes: Pupils equal, round, reactive to light and accommodation, EOMI, no trauma , no injection. Ears: Clear bilaterally, no perforation, normal landmarks Nose: Atraumatic, no rhinorrhea, clear. Throat: There is no erythema or exudates, no lesions, normal tonsils, mucus membranes moist. Neck: Supple, 2+ carotid upstroke, nontender, no lymphadenopathy. Respiratory: No retractions, no distress, no wheezes, and no accessory muscle use. Lungs are clear to auscultation bilaterally. Cardiovascular: Regular rate and rhythm, no murmurs, rubs, or gallops. Bilateral carotid, radial, dorsalis pedis, and posterior tibial pulses intact. Good capillary refill all extremities. Gastrointestinal: Abdomen is soft, nontender, non-distended, no masses, no rebound, no guarding, no peritoneal signs. Musculoskeletal: Normal active ROM of all extremities, atraumatic. Neurological: Alert, appropriate, and interactive. The patient has normal DTRs and non-focal cranial nerves, motor, sensory, and cerebellar exam. Skin: No rashes, good turgor, no nodules on palpation. Past medical history: Macular degeneration, kidney stone, vertigo Past surgical history: Hysterectomy Family history: Denies Social history: Daughter at bedside, lives in [place], retired DIAGNOSTICS/PROCEDURES/CRITICAL CARE TIME: Not indicated. DIFFERENTIAL DIAGNOSIS: The differential diagnosis for the patient's fever included but was not limited to pneumonia, urinary tract infection, viral syndrome, meningitis, and sepsis. MEDICAL DECISION MAKING: The patient is a 77 y/o female with a history of macular degeneration, hysterectomy, and kidney stones presenting with fever and nausea after being diagnosed with a kidney stone. The patient developed right lower quadrant pain and presented to the emergency department. She was diagnosed with constipation and was admitted after vomiting and later diagnosed with a kidney stone. She did have increasing creatine levels throughout that admission. During that admission the pain and nausea dramatically improved, so it was suspected that she passed the stone so she was discharged home. She has a normal physical exam including a benign abdomen. Labs ordered. 1899: Patient's UA reveals a mild UTI. Further tests still pending. 1938: Patient's labs are unremarkable besides the minor UTI findings. 1942: Reassessed patient and discussed imaging findings. I have prescribed her Keflex for the UTI; her first dose was given prior to discharge. Her BP was most likely elevated her due to the stress of being in the ER. I have advised her to take a BP reading once in the morning and once at night; then report these findings to her PCP. Return precautions provided; patient is comfortable with this plan. - Data Points Laboratory Results: Laboratory Results 09/29/18 18:53 09/29/18 18:53 09/29/18 09/29/18 09/29/18 19:24 18:53 18:53 WBC RBC Hgb Hct MCV MCH MCHC RDW Plt Count MPV Neut % (Auto) Lymph % (Auto) [place] % (Auto) Eos % (Auto) Baso % (Auto) Nucleat RBC Rel Count Absolute Neuts (auto) Absolute Lymphs (auto) Absolute Monos (auto) Absolute Eos (auto) Absolute Basos (auto) Absolute Nucleated RBC Immature Gran % Immature Gran # PT Pending INR Pending APTT Pending VBG Lactic Acid 1.2 mmol/L mmol/L (0.7-2.1) Sodium 137 mEq/L mEq/L (135-145) Potassium 3.9 mEq/L mEq/L (3.5-5.2) Chloride 108 mEq/L mEq/L (97-110) Carbon Dioxide 24 mEq/l mEq/l (22-31) Anion Gap 5 mEq/L L mEq/L (6-14) BUN 15 mg/dL mg/dL (7-23) Creatinine 0.9 mg/dL mg/dL (0.6-1.0) Estimated GFR > 60 Glucose 102 mg/dL H mg/dL (70-100) Calcium 9.3 mg/dL mg/dL (8.5-10.4) Total Bilirubin 0.3 mg/dL mg/dL (0.1-1.4) Urine Color Urine Appearance Urine pH Ur Specific [place] Urine Protein Urine Ketones Urine Blood Urine Nitrate Urine Bilirubin Urine Urobilinogen Ur Leukocyte Esterase Urine RBC Urine WBC Ur Epithelial Cells Urine Glucose 09/29/18 09/29/18 18:53 18:30 WBC 7.18 10^3/uL 10^3/uL (3.80-9.50) RBC 3.62 10^6/uL L 10^6/uL (4.18-5.33) Hgb 11.6 g/dL L g/dL (12.6-16.3) Hct 35.1 % L % (38.0-47.0) MCV 97.0 fL fL (81.5-99.8) MCH 32.0 pg pg (27.9-34.1) MCHC 33.0 g/dL g/dL (32.4-36.7) RDW 12.9 % % (11.5-15.2) Plt Count 207 10^3/uL 10^3/uL (150-400) MPV 11.6 fL fL (8.7-11.7) Neut % (Auto) 61.3 % % (39.3-74.2) Lymph % (Auto) 28.6 % % (15.0-45.0) [place] % (Auto) 7.0 % % (4.5-13.0) Eos % (Auto) 2.1 % % (0.6-7.6) Baso % (Auto) 0.7 % % (0.3-1.7) Nucleat RBC Rel Count 0.0 % % (0.0-0.2) Absolute Neuts (auto) 4.41 10^3/uL 10^3/uL (1.70-6.50) Absolute Lymphs (auto) 2.05 10^3/uL 10^3/uL (1.00-3.00) Absolute Monos (auto) 0.50 10^3/uL 10^3/uL (0.30-0.80) Absolute Eos (auto) 0.15 10^3/uL 10^3/uL (0.03-0.40) Absolute Basos (auto) 0.05 10^3/uL 10^3/uL (0.02-0.10) Absolute Nucleated RBC 0.00 10^3/uL 10^3/uL (0-0.01) Immature Gran % 0.3 % % (0.0-1.1) Immature Gran # 0.02 10^3/uL 10^3/uL (0.00-0.10) PT INR APTT VBG Lactic Acid Sodium Potassium Chloride Carbon Dioxide Anion Gap BUN Creatinine Estimated GFR Glucose Calcium Total Bilirubin Urine Color PALE YELLOW Urine Appearance CLEAR Urine pH 5.0 (5.0-7.5) Ur Specific [place] 1.006 (1.002-1.030) Urine Protein NEGATIVE (NEGATIVE) Urine Ketones TRACE H (NEGATIVE) Urine Blood 1+ H (NEGATIVE) Urine Nitrate NEGATIVE (NEGATIVE) Urine Bilirubin NEGATIVE (NEGATIVE) Urine Urobilinogen NEGATIVE EU EU (0.2-1.0) Ur Leukocyte Esterase TRACE H (NEGATIVE) Urine RBC 1-3 /hpf /hpf (0-3) Urine WBC 5-10 /hpf H /hpf (0-3) Ur Epithelial Cells TRACE /lpf /lpf (NONE-1+) Urine Glucose NEGATIVE (NEGATIVE) Departure - Departure Disposition: Home, Routine, Self-Care Clinical Impression: UTI (urinary tract infection) Qualifiers: Urinary tract infection type: site unspecified Hematuria presence: with hematuria Qualified Code(s): N39.0 - Urinary tract infection, site not specified Condition: Good Instructions: Urinary Tract Infection in Women (ED), Urinary Tract Infection in Older Adults (ED) Additional Instructions: 1. Take Keflex as prescribed. 2. Follow-up with your primary doctor within 72 hours. 3. Return to the Emergency Department for fever, worsening pain, flank pain or failure to improve within 72 hours. 4. Please take your blood pressure once in the morning and once in the evening. Then take these results and report them to your physician. Referrals: Hina Hopkins MD [Primary Care Provider] - As per Instructions Prescriptions: Cephalexin [Keflex (RX)] 500 mg PO TID #30 cap Report Scribed for: Margarito Pritchard Report Scribed by: Zulma Valente Date of Report: 09/29/18 Time of Report: 18:30
[2018-09-29 19:22] LABS: PLATELET COUNT 207 10^3/uL (150-400)
[2018-09-29] MEDS ORDERED: CEPHALEXIN 500 MG CAP PO ONE (19:41)
[2018-09-29 19:42] VITALS: BP 168/93
[2018-09-29 19:47] LABS: INR 0.97 (0.83-1.16); PROTIME(PATIENT) 12.5 SEC (12.0-15.0)
== END 2018-09-29 20:03 | disposition home or self-care (01) ==
DX: N39.0 Urinary tract infection, site not specified (principal); Z87.442 Personal history of urinary calculi